=== PATIENT | male | born 1955 | race Hispanic/Latino ===

== ENCOUNTER → 2018-01-19 | Outpatient (CLI) | payer OTHER | END | disposition home or self-care (01) | LOC: OIH 15:39 | PROVIDERS: ATTEND Family Medicine | DX: M43.22 Fusion of spine, cervical region (principal); M25.78 Osteophyte, vertebrae; M25.561 Pain in right knee; M25.562 Pain in left knee | CPT/HCPCS: 72040; 73562 ==

== ENCOUNTER → 2022-12-31 | Outpatient (CLI) | payer OTHER | END | disposition home or self-care (01) | LOC: RAH 09:01 | PROVIDERS: ATTEND Nurse Practitioner | DX: R31.29 Other microscopic hematuria (principal) | CPT/HCPCS: 76770 ==